=== PATIENT | female | born 1985 | race Caucasian/White ===

== ENCOUNTER 2020-08-20 20:49 | Emergency (ER) | payer BC ==
[~2020-08-20] VITALS: Ht 172.7 cm; Wt 57.6 kg
[2020-08-20 20:50] VITALS: BP 128/99
[2020-08-20] MEDS ORDERED: IBUPROFEN 600 MG TABLET PO ONE (21:30)
[2020-08-20] MEDS ORDERED: IBUPROFEN 400 MG TABLET ONE (21:34)
[2020-08-20] MEDS ORDERED: IBUPROFEN 600 MG TABLET ONE (21:34)
[2020-08-20 21:39] LABS: APPEARANCE,URINE CLEAR (CLEAR); BILIRUBIN,URINE NEGATIVE (NEGATIVE); BLOOD, URINE TRACE-INTA Ery/uL (NEGATIVE); COLOR,URINE YELLOW (YELLOW); KETONES,URINE 15 (NEGATIVE); LEUKOCYTE ESTERASE ,URINE NEGATIVE (NEGATIVE); NITRITE, URINE POSITIVE (NEGATIVE); PROTEIN,URINE 30 mg/dl (NEGATIVE); UGLUCOSE NEGATIVE (NEGATIVE)
[2020-08-20 21:46] LABS: BACTERIA,URINE 2+ /HPF (None Seen); RBC,URINE 0-2 /HPF (0-2); SQUAMOUS EPITHELIAL CELL,UR Few /HPF (None Seen); WBC,URINE 0-2 /HPF (0-3)
== END 2020-08-20 22:17 | disposition home or self-care (01) ==
LOC: ER 20:55
DX: N39.0 Urinary tract infection, site not specified (principal)
CPT/HCPCS: 81000-TC; 84703-TC; 87086-TC; 87186-TC